=== PATIENT | male | born 1955 | race Hispanic/Latino ===

== ENCOUNTER → 2024-09-20 | Outpatient (CLI) | payer OTHER ==
--- NOTE | 2024-09-20 11:59 | HMCIMG ---
US SCROTUM & CONTENTS REASON: Testicular pain COMPARISON: None TECHNIQUE: Routine imaging protocol performed. Vascular Doppler evaluation was performed with spectral analysis and color flow imaging. FINDINGS: There are normal-appearing testicles, right 4.9 x 2.9 x 2.6 cm and left 5.1 x 2.8 x 2.2 cm. There is normal and symmetrical appearing blood flow. Both the right and left epididymis appear normal. There is no hydrocele or varicocele. IMPRESSION: 1. Normal scrotal sonogram.
== END | disposition home or self-care (01) ==
LOC: RAH 09:54
PROVIDERS: ATTEND Family Medicine
DX: N50.811 Right testicular pain (principal); N50.812 Left testicular pain
CPT/HCPCS: 76870